=== PATIENT | female | born 1960 | race Caucasian/White ===

== ENCOUNTER 2021-07-23 20:43 | Emergency (ER) | payer OTHER ==
--- OUTSIDE RECORDS SUMMARY | 2021-07-23 20:48 | XMS REPORT | Continuity of Care Document ---
:1960 Author Organization [facility] t Address [address] [place] [address] Care Team Providers Name Role Phone [facility] Primary Care Physician Unavailable Charbel Attending Clinician Unavailable JASON Attending Clinician Unavailable Blaire Chamberlain Attending Clinician Unavailable Silvano Raza Attending Clinician Unavailable ESSENCE Attending Clinician Unavailable Jodee Abdi MD Attending Clinician PERFECTO Attending Clinician Unavailable NETTA Attending Clinician Unavailable Doctor Unassigned, Name Attending Clinician Unavailable Nallely NOLEN Attending Clinician Unavailable Charbel Admitting Clinician Unavailable Physician, Primary or Family Admitting Clinician UnavailBlaire Esparza Admitting Clinician Unavailable Silvano Raza Admitting Clinician Unavailable Nallely NOLEN Admitting Clinician Unavailable Payers Payer Name Policy Type Policy Number Effective Date Expiration Date S ource Problems Condition Condition Condition Status Onset Resolution Last Treating Co mments Source Name Details Category Date Date Treatment Clinician Date Other Other Disease Active Univers psoriasis psoriasis - ity of 00:00: [place] 00 Medical Branch Bipolar Bipolar Disease Active Overview: Univ ers disorder disorder 2-14 Bipolar ity o f 00:00: Disorder IIICD10 Medical Diagnosis Branch Term [employer] Utility Injury, Injury, Disease Active Overview: Univ ers other and other and 2-14 Rash on ity of unspecifie unspecifie 00:[place], knee, d, knee, 00 unknown Medic al leg, leg, specifics Branch ankle, and ankle, and unable to foot foot abstract more specifica lly at this time.REG, Medical Abstracte r [id number]@6: 00pm Anxiety Anxiety Disease Active Overview: Univ ers state state 2-14 ICD10 ity of 00:00: Diagnosis [place] 00 Term Medical [employer] Branch Utility Panic Panic Disease Active Univers disorder disorder 2-14 ity of without without 00:00: [place] agoraphobi agoraphobi 00 Me dical a a Branch Episodic Episodic Disease Active Overview: Un maria guadalupe mood mood 7-12 ICD10 ity of disorder disorder 00:00: Diagnosis [place] 00 Term Medical [employer] Branch Utility Esophageal Esophageal Disease Active U nivers reflux reflux 7-12 ity of 00:00: [place] 00 Medical Branch Borderline Borderline Disease Active U nivers personalit personalit 7-12 it y of [place] disorder [place] Essential Problem Active 2019-11-10 Me moria hypertensi 04:17:01 l on [place] Essential hypertensi on Active Problem 0 eCW: [facility] Alzheimer' Problem Active 2019-11-10 M emoria s disease, 04:17:01 l unspecifie [place] d Alzheimer' s disease, unspecifie d Active Problem 11/10/2019 eCW: [facility] Chronic Problem Active 2019-11-10 Nadir lele obstructiv 04:17:01 l e Chronic [place] pulmonary obstructiv disease, e unspecifie pulmonary d COPD disease, type unspecifie d COPD type Active Problem 11/10/2019 eCW: [facility] Obesity Problem Active 2019-06-19 Nadir lele (BMI 04:14:45 l 30-39.9) Obesity Morena nn (BMI 30-39.9) Active Problem 06/19/2019 eCW: [facility] Dementia Problem Active 2019-11-10 Mem oria in other 04:17:01 l diseases Dementia Herm cecilia classified in other elsewhere diseases without classified behavioral elsewhere disturbanc without e behavioral disturbanc e Active Problem 11/10/2019 eCW: [facility] Class 2 Problem Active 2019-11-10 Nadir lele severe 04:17:01 l obesity Class 2 [place] due to severe excess obesity calories due to with excess serious calories comorbidit with y and body serious mass index comorbidit (BMI) of y and body 39.0 to mass index 39.9 in (BMI) of adult 39.0 to 39.9 in adult Active Problem 11/10/2019 eCW: [facility] BMI Problem Active 2019-11-10 Memor ia 37.0-37.9, 04:17:01 l adult BMI Jonn 37.0-37.9, adult Active Problem 11/10/2019 eCW: [facility] Alzheimer' Problem Active 2019-11-10 M emoria s disease 04:17:01 l with early [place] n onset Alzheimer' s disease with early onset Active Problem 11/10/2019 eCW: [facility] 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 Jonn disorders Extrapyram in idal and diseases movement classified disorders elsewhere in diseases classified elsewhere Active Problem 11/10/2019 eCW: [facility] Radiculopa Problem Active 2019-11-10 M emoria thy, 04:17:01 l lumbar [place] region Radiculopa thy, lumbar region Active Problem 11/10/2019 eCW: [facility] Mild Problem Active 2019-11-10 Memor ia cognitive 04:17:01 l impairment Mild [place] , so cognitive stated impairment , so stated Active Problem 11/10/2019 eCW: [facility] Bipolar Diagnosis Active 2019-07-08 Me moria disorder 04:14:29 l with Bipolar [place] depression disorder with depression Active Diagnosis 07/08/2019 eCW: [facility] Breast Diagnosis Active 2019-07-08 Mem oria cancer 04:14:29 l screening Breast Morena nn by cancer mammogram screening by mammogram Active Diagnosis 07/08/2019 eCW: [facility] Leg edema Diagnosis Active 2019-07-08 Memoria 04:14:29 l Leg Jonn edema Active Diagnosis 07/08/2019 eCW: [facility] Encounter Diagnosis Active 2019-07-08 Memoria for 04:14:29 l screening Jonn Encounter for screening Active Diagnosis 07/08/2019 eCW: [facility] Physical Diagnosis Active 2019-07-08 M emoria exam 04:14:29 l Physical [place] n exam Active Diagnosis 07/08/2019 eCW: [facility] Tobacco Problem Active 2019-11-10 Nadir lele use 04:17:01 l disorder Tobacco [place] nn use disorder Active Problem 11/10/2019 eCW: [facility] Rheumatoid Problem Active 2019-11-10 M emoria arthritis, 04:17:01 l involving Jonn unspecifie Rheumatoid d site, arthritis, unspecifie involving d unspecifie rheumatoid d site, factor unspecifie presence d rheumatoid factor presence Active Problem 11/10/2019 eCW: [facility] Type 2 Problem Active 2019-11-10 Memor ia diabetes 04:17:01 l mellitus Type 2 [place] without diabetes complicati mellitus on, without without complicati long-term on, current without use of long-term insulin current use of insulin Active Problem 11/10/2019 eCW: [facility] BMI Diagnosis Active 2019-07-08 Mem oria 39.0-39.9, 04:14:29 l adult BMI [place] 39.0-39.9, adult Active Diagnosis 07/08/2019 eCW: [facility] Acquired Problem Active 2019-11-10 Mem oria hypothyroi 04:17:01 l dism Acquired [place] hypothyroi dism Active Problem 11/10/2019 eCW: [facility] Allergies, Adverse Reactions, Alerts Allergy Allergy Status Severity Reaction(s) Onset Inactive Treating Comm ents Source Name Type Date Date Clinician adhesive DA Active U PEELS [facility] SKIN 1-17 Clear OFF/RASH-HIV 00:00: Samuel ES [facility] METALS DA Active U ITCHING/PUS [facility] BLISTERS 1-17 Clear 00:00: [facility] adhesive DA Active U 2020-03 [facility] 0-28 Clear 00:00: [facility] Penicill DA Active U 2020-03 [facility] ins 0-28 Clear 00:00: [facility] morphine DA Active [place] 2020-03 [facility] 0-28 Clear 00:00: [facility] cephalex DA Active [place] 2020-03 [facility] in 0-28 Clear 00:00: [facility] Penicill DA Active U RASH 2020-03 [facility] ins 0-28 Clear 00:00: [facility] morphine DA Active [place] ITCHING 2020-03 [facility] 0-28 Clear 00:00: [facility] diphenhy DA Active [place] 2020-03 [facility] dramine 0-28 Clear 00:00: [facility] cephalex DA Active [place] RASH 2020-03 [facility] in 0-28 Clear 00:00: [facility] adhesive DA Active U PEELS THE 2020-03 [facility] SKIN OFF 0-28 Clear 00:00: [facility] diphenhy DA Active [place] ITCHING 2020-03 [facility] dramine 0-28 Clear 00:00: [facility] morphine morphine Active Info Not 2020-0 Nadir lele Available 6-26 l 00:00: penicill penicill Active Info Not 2020-0 Nadir lele in in Available 6-26 l 00:00: Keflex Keflex Active Info Not 2020-0 Memoria Available 6-26 l 00:00: Keflex Propensi Active 2020-0 Other [facility] ty to 3-25 reaction( College adverse 00:00: s): Info of reaction 00 Not Medicin s to Available e drug Cephalex Propensi Active Shortness of 2005-0 Univers in ty to Breath 7-12 ity of adverse 00:00: [place] reaction 00 Medical s Branch CEPHALEX DRUG Active SOB 2005-0 Univers IN INGREDI 7-12 ity of 00:00: 00 Medical Branch Morphine Propensi Active Itching 2005-0 Unive rs Sulfate ty to 7-12 ity of adverse 00:00: [place] reaction 00 Medical s Branch MORPHINE DRUG Active ITCHING 2005-0 Univers SULFATE INGREDI 7-12 ity of 00:00: [place] 00 Medical Branch PENICILL Drug Active ITCHING 2005-0 Univers INS Class 7-12 ity of 00:00: [place] 00 Medical Branch Penicill Propensi Active Itching 2005-0 Unive rs ins ty to 7-12 ity of adverse 00:00: [place] reaction 00 Medical s Branch Cephalex Propensi Active Shortness Of 2005-0 Raúl in ty to Breath 7-12 College adverse 00:00: of reaction 00 Medicin s to e drug Morphine Propensi Active Itching [facility] Sulfate ty to 712 College adverse 00:00: of reaction 00 Medicin s to e drug Penicill Propensi Active Itching Other [facility] ins ty to 10-03 reaction( [place] adverse 00:00: s): Info of reaction 00 Not Medicin s to Available e drug Social History Social Habit Start Date Stop Date Quantity Comments Source Sex Assigned [facility] Tobacco use and 2020-06-14 2020-06-14 Current user [facility] College of exposure 00:00:00 00:00:00 Medicine Alcohol intake 2020-06-14 2020-06-14 Ex-drinker [facility] Col lege of 00:00:00 00:00:00 (finding) Medicine Smoking Status Start Date Stop Date Source Current some day smoker 2020-06-14 00:00:00 [facility] Unknown if ever smoked [facility] Medications Ordered Filled Start Stop Current Ordering Indication Dosage Frequency Signature Comments Components Source Medication Medication Date Date Medication? Clinician (SIG) Name Name Tofacitinib Yes Take by [facility] Citrate 5 3-23 mouth. College MG TABS 14:35: of 45 Medicin e amitriptyli Yes 100mg Take 100 B [facility] ne (ELAVIL) 3-23 mg by [place] 100 MG 14:35: mouth of tablet 45 nightly. Medicin e olanzapine Yes 15mg Take 15 mg [facility] (ZYPREXA) 3-23 by mouth Colleg e 15 MG 14:35: nightly. of tablet 45 Medicin e donepezil Yes 10mg Take 10 mg [facility] (ARICEPT) 3-23 by mouth Colleg e 10 MG 14:35: nightly. of tablet 45 Medicin e diazepam Yes 5mg Take 5 mg [facility] (VALIUM) 5 3-23 by mouth Colle ge MG tablet 14:19: every 6 of 23 hours as Medicin needed for e Anxiety. furosemide Yes 20mg Take 20 mg [facility] (LASIX) 20 3-23 by mouth Colle ge MG tablet 14:19: daily. of 23 Medicin e levothyroxi Yes 50ug Take 50 Clarke shania ne 3-23 mcg by [place] (SYNTHROID) 14:19: mouth of 50 MCG 23 daily. Medicin tablet e metformin Yes 1000mg Take 1,000 [facility] (GLUCOPHAGE 3-23 mg by [place] ) 1000 MG 14:19: mouth 2 of tablet 23 times Medicin daily e (with meals). atorvastati Yes 40mg Take 40 mg [facility] n (LIPITOR) 3-23 by mouth Julian ege 40 MG 14:19: daily. of tablet 22 Medicin e Biotin 5000 Yes Take by Dread foreman MCG TABS 3-23 mouth. [place] 14:19: of 22 Medicin e Cranberry-C Yes Take by Dread foreman holecalcife 3-23 mouth. Colleg e rol 14:19: of 4200-500 22 Medicin MG-UNIT e CAPS doxycycline Yes 100mg Take 1 Clarke shania (VIBRAMYCIN 3-23 capsule by Ashley rojo ) 100 MG 00:00: mouth two of capsule 00 times Medicin daily. e trazodone Yes TAKE 1 Raúl (DESYREL) 3-03 TABLET BY [facility] ge 150 MG 00:00: MOUTH of tablet 00 EVERY DAY Medicin AT BEDTIME e pantoprazol 2019-0 Yes Cecilia 1 tab(s) Me moria e 818 [place] l 04:17: metformin 2020-0 Yes Cecilia 1 tab(s) Nadir lele 8-18 [place] l 04:17: paroxetine 2020-0 Yes Cecilia 1 tab(s) Mem oria 7- [place] l 04:13: atorvastati 2020-0 Yes Cecilia 1 tab(s) Me moria n 7-09 [place] l 04:13: 32 Aspir 81 2020-0 Yes Cecilia 1 tab(s) Memor ia 7- [place] l 04:13: amitriptyli 2020-0 Yes Cecilia 1 tab(s) Me moria ne 7- [place] l 04:13: Aricept 2020-0 Yes Cecilia 1 tab(s) Memori a 7- [place] l 04:13: 32 levothyroxi 2020-0 Yes Cecilia 1 tab(s) Me moria ne 7-09 [place] l 04:13: 32 metoprolol 2020-0 Yes Cecilia 1 tab(s) Mem oria 7-09 [place] l 04:13: 32 isosorbide 2020-0 Yes Cecilia 1 tab(s) Mem oria dinitrate 7-09 [place] l 04:13: 32 biotin 2020-0 Yes Cecilia 1 tab(s) Memoria 7-09 [place] l 04:13: 32 trazodone 2020-0 Yes Cecilia 1 tab(s) Nadir lele 7-09 [place] l 04:13: 32 clonazepam 2020-0 Yes Cecilia 1 tab(s) Mem oria 7-09 [place] l 04:13: [place] 32 furosemide 2020-0 Yes Cecilia 1 tab(s) Mem oria 7-09 [place] l 04:13: 32 olanzapine 2020-0 Yes Cecilia 1 tab(s) Mem oria 7-09 [place] l 04:13: 32 nitroglycer 2020-0 Yes Cecilia 1 cap(s) Me moria in 7- [place] l 04:13: 32 Tylenol 2020-0 Yes Cecilia 1 tab(s) Memori a with 7-09 [place] l Codeine #4 04:13: 32 Xeljanz 2020-0 Yes Cecilia 1 tab(s) Memori a 7-09 [place] l 04:13: 32 Combivent 2020-0 Yes Cecilia not Memoria 7-09 [place] defined l 04:13: 32 potassium 2020-0 Yes Cecilia 1 cap(s) Nadir llee chloride 7-09 [place] l 04:13: 32 Loperamide 2020-0 Yes Cecilia 1 cap(s) Mem oria Hydrochlori 7-09 [place] l de 04:13: 32 potassium 2020-0 Yes Cecilia 1 cap(s) Nadir lele chloride 4-15 [place] l 04:14: 29 furosemide 2020-0 Yes Cecilia 1 tab(s) Mem oria 4-15 [place] l 04:14: [place] 29 amitriptyli 2020-0 Yes Cecilia 1 tab(s) Me moria ne 4-15 [place] l 04:14: Jonn 29 isosorbide Yes Cecilia 1 tab(s) Mem oria dinitrate 4-15 [place] l 04:14: 29 PAXIL ORAL Yes 60 mg, q Uni vers 5-29 am ity of 23:11: [address] TRAZODONE Yes q hs Univers 300 MG ORAL 5-29 ity of TAB 23:11: [address] PAXIL 20 MG Yes Take As Uni vers ORAL TAB 2-15 DIR ORAL ity of 00:02: [address] PEPCID AC Yes Take As Unive rs ORAL 2-15 DIR ORAL ity of 00:02: [address] COMPAZINE Yes Take As Unive rs 10 MG ORAL 2-15 DIR ORAL ity o f TAB 00:02: [address] NORTRIPTYLI Yes Take As Uni vers NE 25 MG 2-15 DIR ORAL ity of ORAL CAP 00:02: [address] KLONOPIN 1 Yes Take As Univ ers MG ORAL TAB 2-15 DIR ORAL ity of 00:02: [address] ESCITALOPRA Yes 2 Tab Oral Univers M 10 MG 7-14 DAILY ity of ORAL TAB 00:00: [address] TRAZODONE 0 Yes 1 Tab Oral Un maria guadalupe 100 MG ORAL 7-14 QHS ity of TAB 00:00: [place] [address] [address] [place] QUETIAPINE 0 Yes 2 Tab Oral U nivers 100 MG ORAL 7-14 QHS ity of TAB 00:00: [place] [address] [address] [place] ZOLPIDEM 10 0 Yes 1 Tab Oral Univers MG ORAL TAB 7-14 QHS ity of 00:00: [address] Vital Signs Vital Name Observation Time Observation Value Comments Source Systolic blood 2020-06-14 13:55:00 106 mm[Hg] [facility] pressure Medicine Diastolic blood 2020-06-14 13:55:00 77 mm[Hg] [facility] of pressure Medicine Heart rate 2020-06-14 13:55:00 83 /min [facility] Body height 2020-06-14 13:55:00 170.2 cm [facility] Body weight 2020-06-14 13:55:00 97.523 kg [facility] BMI 2020-06-14 13:55:00 33.67 kg/m2 [facility] Height 2019-09-18 18:30:00 [facility] [place] Weight 2019-09-18 18:30:00 [facility] [place] Temperature Oral (F) 2019-09-18 18:30:00 98.4 F [facility] [place] Diastolic (mm Hg) 2019-09-18 18:30:00 Mem orial Jonn Systolic (mm Hg) 2019-09-18 18:30:00 Nadir rial Jonn Height 2019-06-17 15:30:00 [facility] [place] Weight 2019-06-17 15:30:00 [facility] [place] Temperature Oral (F) 2019-06-17 15:30:00 96.2 F [facility] [place] Diastolic (mm Hg) 2019-06-17 15:30:00 Mem orial [place] Systolic (mm Hg) 2019-06-17 15:30:00 Nadir rial [place] Procedures Procedure Date / Time Performing Clinician Source Performed ADRIAN SCOPE 2020-06-14 15:33:00 Sharona Abdi [facility] AUTHORIZATION FOR 2019-07-31 05:01:00 Doctor Unassigned, No [facility] RELEASE OF PHI Name Medical Branch Plan of Care Planned Activity Planned Date Details Comments Source Future Scheduled MD NASAL ENDOSCOPY,DX Ordered: [employer] Test [code = 18984] 06/20/2020 of Medicine Future Scheduled Screening for malignant [facility] Test neoplasm of colon of Medicin e (procedure) [code = 962893676] Future Scheduled Screening for malignant [facility] Test neoplasm of breast of Medici ne (procedure) [code = 250436129] Future Scheduled TETANUS SHOT (ADULT) [facility] [employer] Test [code = TETANUS SHOT of Medi cine (ADULT)] Future Scheduled COVID-19 Vaccine (1) [facility] [employer] Test [code = COVID-19 Vaccine of Medicine (1)] Future Scheduled BMI FOLLOW UP PLAN [code [facility] Test = BMI FOLLOW UP PLAN] of Med icine Future Scheduled Hepatitis C screening [employer] Test (procedure) [code = of Medic ine 202634317] Future Scheduled Human immunodeficiency B [facility] Test virus screening of Medicine (procedure) [code = 695125210] Future Scheduled Screening for malignant [facility] Test neoplasm of cervix of Medici ne (procedure) [code = 308564237] Future Scheduled ZOSTER VACCINE (1 of 2) [facility] Test [code = ZOSTER VACCINE of Me dicine (1 of 2)] Future Scheduled FLU VACCINE > 6 MONTHS B [facility] Test [code = FLU VACCINE > 6 of M edicine MONTHS] Encounters Start End Encounter Admission Attending Care Care Encounter Source Date/Time Date/Time Type Type Clinicians Facility Department ID 2021-04-10 Inpatient TRUE Angela DAYS [id number] [facility] 15:00:00 Heri [id number] [facility] 2020-11-04 Outpatient [id number] Memoria 15:11:39 [id number] [place] [id number] 2021-04-27 2021-04-27 Outpatient JASON [facility] [id number] 00:00:00 00:00:00 RUEYWEN 220 Method i 2021-04-27 2021-04-27 Outpatient GOMEZ [facility] [id number] 00:00:00 00:00:00 RUEYWEN 391 Method i 2021-04-11 2021-04-11 Outpatient TRUE Angela DAYS [id number] [facility] 05:44:00 05:44:00 Heri [id number] [facility] 2021-04-11 2021-04-11 [id number] 05:44:00 05:44:00 Heri 85 [facility] 2021-03-05 2021-03-07 Inpatient EM Errolmarco antonioTRUE MEDI.01 [id number] [facility] 22:14:00 18:43:00 Marielle [id number] [facility] 2021-03-05 2021-03-07 Inpatient EM TRUE Chamberlain MEDI.01 [id number] [facility] 22:14:00 18:43:00 Marielle 47 [facility] 2021-02-03 2021-02-03 Outpatient JASON [facility] [id number] 00:00:00 00:00:00 RUEYWEN 644 Method i 2021-01-19 2021-01-22 Inpatient EM Ry [facility] MEDI.01 [id number] [facility] 11:03:00 16:34:00 Magy 08 [facility] 2021-01-19 2021-01-22 Inpatient EM TRUE Raza MEDI.01 [id number] [facility] 11:03:00 16:34:00 Magy [id number] [facility] 2020-11-04 2020-11-04 Outpatient JASON [facility] [id number] 00:00:00 00:00:00 RUIESHA 297 Method i 2020-09-22 2020-09-22 Outpatient [facility] [id number] [place] 00:00:00 00:00:00 797 Method i 2020-09-17 2020-09-17 Emergency ESSENCE, [facility] [id number] [place] 00:00:00 00:00:00 BRIDGETTE 899 Method i 2020-08-26 2020-08-26 Outpatient JASON [facility] [id number] [address] 00:00:00 00:00:00 RUIESHA 155 Method i 2020-06-14 2020-06-14 Office FABRICE Abdi [id number] [facility] 08:44:00 11:45:02 Visit Sharona AMBULATOR [id number] [place] Jodee Y [id number] [facility] mehran 800 e 2020-06-10 2020-06-10 Emergency RIVENES, [facility] [id number] [place] 00:00:00 00:00:00 ALESHIA 604 Method i 2020-01-01 2020-01-01 Outpatient NETTA, [facility] 7500 [facility] 08:26:00 23:59:00 STEFFANIE 2019-07-31 2019-07-31 Orders Doctor BRIDGETTE [id number] Univers 00:00:00 00:00:00 Only Unassigned, ANA 350.1.13.10 ity of [place] [facility] [id number] Bon as [id number] [address] 2019-07-31 2019-07-31 Orders Doctor BRIDGETTE [id number] 00:00:00 00:00:00 Only Unassigned, ANA 350.1.13.10 [place] [facility] [id number] [facility] 2019-03-18 2019-03-19 Emergency X NOLEN, [facility] ERT [id number] Univers 23:16:26 01:52:00 JABIER castillo [facility] Results Test Description Test Time Test Comments Results Result Comments Source GLUCOSE BEDSIDE 2021-04-11 10:36:00 Test Item Value Reference Range Interpretation Comme nts GLUCOSE BEDSIDE (test code = 150 MG/DL 70-110 H Performed by certified 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 [facility]) [facility] GLUCOSE [id number] 07:17:00 Test Item Value Reference Range Interpretation Comments GLUCOSE BEDSIDE (test 101 MG/DL 70-110 N Perfor med by certified code = GLUBED) 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 - XR FLUOROSCOPY 0-60 [id number] 00:00:00 [facility] : 1960 Sex: F FAX: Heri Aguayo MD [phone] [place]: [address]: REG Name: MIHAI ALMAGUER : 1960 Age/S: 60/F [address] [place] [address] Unit #: [id number] Loc: [place] [address] Phys: Heri Barger MD Acct: [id number] Dis Date: Status: REG [facility] PHONE #: [phone] Exam Date: 04/11/2021 1000 FAX #: [phone] Reason: HERNIATED CERVICAL DISC EXAMS: CPT CODE: [id number] XR FLUOROSCOPY 0-60MIN [id number] PROCEDURE INFORMATION: Exam: [place] Fluoroscopy, Up to 1 Hour Physician Time; Radiologist Not Present For Fluoroscopy Exam date and time: 04/11/2021 8:31 AM Age: 60 years old Clinical indication: Pain; Pain: Herniated cervical disc 5/6; () TECHNIQUE: Imaging protocol: Fluoroscopy , up to 1 hour physician or other qualified health career agent time. This radiologist did not supervise this procedure. Exam supervised by facility personnel. Report for radiation dosage reporting and documentation only. COMPARISON: No relevant prior studies available. RADIATION DOSE METRICS: Fluoroscopy time (seconds): seconds= 11 SEC Number of fluoro spot images: images= 4 Reference air kerma (VIMAL): 1.76 mGy FINDINGS: Procedural imaging: Anterior fusion and interbody graft C5-C6. Notes: Fluoroscopy supervised by facility personnel. See also separate procedure report. IMPRESSION: Fluoroscopy dosage documentation. See also separate procedure notes. Electronically Signed by Richard Gibson 04/11/2021 at 1034 Reported and signed by: Giovani Le M.D. CC: Heri Barger MD Technologist: Saundra Ricci, RT(R) Trnscrd Date/Time/By: 04/11/2021 (1034) : By: ArnulfoTTV Orig Print D/T: S: 04/11/2021(4649) PAGE 1 Signed ReportCOVID 19 Asymptomatic IH AG 2021-04-10 18:37:00 Test Item Value Reference Range Interpretation Comments COVID 19 Asymptomatic Negative Negative A nega tive result is IH AG (test code = presumpti ve and should COVNONPUIAG) be confirmedwit h an FDA authorized mole cular assay, if collin sorenson forpatient maryjane hargrove.A positive result does not rule out co-inf ections withother patho gens.This test detects lisa th viable (live) and non-viable,SARS -CoV, and SARS-CoV-2. Jaquelin t performance dep ends on theamount of vi donna (antigen) in th e sample.This jaquelin t has not been FDA cleare d or approved; the t est hasbeen authori zed by FDA under an Em ergency Use Authorizati on(EUA) for use by labo ratories certified under the CLIA thatmeet the requirements to perform moderate, high or waivedcomplexit y tests. BASIC METABOLIC [id number] 17:23:00 Test Item Value Reference Range Interpretation Comments SODIUM (test code = NA) 136 mEq/L 134-147 N POTASSIUM (test code = 3.8 mEq/L 3.4-5.0 N K) CHLORIDE (test code = 106 mEq/L 100-108 N CL) CARBON DIOXIDE (test 24 mEq/l 21-33 N code = CO2) ANION GAP (test code = 10 0-20 N GAP) GLUCOSE (test code = 95 mg/dL 70-110 N GLU) BLOOD UREA NITROGEN < 5 mg/dL 7-18 L (test code = BUN) GLOMERULAR FILTRATION 85.6 90-95 L Units of measure = RATE (test code = GFR) ml/mi n/1.73 m2 CREATININE (test code = 0.7 mg/dL 0.6-1.3 N CREAT) CALCIUM (test code = 10.1 mg/dL 8.0-10.5 N CA) PROTHROMBIN [id number] 17:22:00 Test Item Value Reference Range Interpretation Comments PROTHROMBIN TIME 11.3 SECONDS 9.3-12.9 N PATIENT (test code = PTP) INTERNATIONAL NORMAL 1.0 0.8-1.2 N TARGET RATIO (test code = INR BY IN DICATION INR) Indication INR1. Prophyl axis of venous thrombos is 2.0 - 3. 0 (orthopedic magdy raquel), Prophylaxis of venous thrombos is (other than hig h-risk surgery), Angela tment of Deep Vein Thrombosis/Pulm onary Embolism, Preve ntion of systemic emb olism - Tissue heart va lves, Acute Myocardia l Infarction (to prevent systemic embo lism), Valvular heart disease, Atri al Fibrillation, Bileaflet mecha nical valve in aortic position.2. Mec hanical prosthetic valv es (high risk), 2.5 - 3.5 Presence of Lupus Anticoagu lant or Antiphospholi pid Antibodies, Pre vention of systemic e mbolism - Acute Myocard ial Infarction (t o prevent recurre nt infarct). THROMBOPLASTIN TIME [id number] 17:22:00 Test Item Value Reference Range Interpretation Comments THROMBOPLASTIN TIME 30.9 Seconds 25.0-39.5 N Ther apeutic PARTIAL (test code = Range: 50.4 - 88.3 PTT) Seconds Effective 07/08/2018 CBC W/AUTO [id number] 17:05:00 Test Item Value Reference Range Interpretation Comments WHITE BLOOD CELL (test code = 10.4 x10 3/uL 4.5-11.0 N WBC) RED BLOOD CELL (test code = 5.30 x10 6/uL 3.54-5.02 H RBC) HEMOGLOBIN (test code = HGB) 15.9 g/dL 11.0-15.0 H HEMATOCRIT (test code = HCT) 52.9 % 33.0-45.0 H MEAN CELL VOLUME (test code = 99.8 fL 81.0-99.0 H MCV) MEAN CELL HGB (test code = MCH) 30.0 pg 27.0-33.0 N MEAN CELL HGB CONCETRATION 30.1 g/dL 33.0-37.0 L (test code = MCHC) RED CELL DISTRIBUTION WIDTH CV 14.7 % 11.5-14.5 H (test code = RDW) RED CELL DISTRIBUTION WIDTH SD 54.4 fL 37.0-54.0 H (test code = RDW-SD) PLATELET COUNT (test code = 326 x10 3/uL 150-400 N PLT) MEAN PLATELET VOLUME (test code 9.5 fL 7.0-9.0 H = MPV) NEUTROPHIL % (test code = NT%) 58.9 % 56.0-77.0 N IMMATURE GRANULOCYTE % (test 0.3 % 0.0-2.0 N code = IG%) LYMPHOCYTE % (test code = LY%) 31.7 % 14.0-32.0 N MONOCYTE % (test code = MO%) 8.4 % 4.8-9.0 N EOSINOPHIL % (test code = EO%) 0.3 % 0.3-3.7 N BASOPHIL % (test code = BA%) 0.4 % 0.0-2.0 N NUCLEATED RBC % (test code = 0.0 % 0-0 N NRBC%) NEUTROPHIL # (test code = NT#) 6.11 x10 3/uL 2.0-7.6 N IMMATURE GRANULOCYTE # (test 0.03 x10 3/uL 0.00-0.03 N code = IG#) LYMPHOCYTE # (test code = LY#) 3.29 x10 3/uL 1.0-3.8 N MONOCYTE # (test code = MO#) 0.87 x10 3/uL 0.1-0.8 H EOSINOPHIL # (test code = EO#) 0.03 x10 3/uL 0.0-0.2 N BASOPHIL # (test code = BA#) 0.04 x10 3/uL 0.0-0.2 N NUCLEATED RBC # (test code = 0.00 x10 3/uL 0.0-0.1 N NRBC#) MANUAL DIFF REQUIRED (test code NO = MDIFF) - XR CHEST 2 [id number] 00:00:00 [facility] : 1960 Sex: F FAX: Heri Aguayo MD [phone] [place]: St: PRE FAX: Leighann Atkins Name: DERRICK ALMAGUER [facility] : 1960 Age/S: 60/F [address] [place] [address] Unit #: [id number] Loc: [place] [address] Phys: Leighann Baxter MELT 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 Views: 2 views. PA and Lateral COMPARISON: 03/05/2021 chest x-ray FINDINGS: Lungs: Bilateral pulmonary opacities seen on the prior study are improved with mild residual bibasilar predominately interstitial opacities present. Pleural spaces: No pleural effusion. No pneumothorax. Heart/Mediastinum: Cardiomediastinal silhouette is normal in size. Bones/joints: No acute bony finding. IMPRESSION: Interval improvement in pulmonary opacities seen on the prior exam with mild residual bibasilar infiltrates or scarring. at 1721 Reported and signed by: Devyn Martínez M.D. 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 BASIC METABOLIC [id number] 07:59:00 Test Item Value Reference Range Interpretation Comments SODIUM (test code = NA) 140 mEq/L 134-147 N POTASSIUM (test code = 3.6 mEq/L 3.4-5.0 N K) CHLORIDE (test code = 106 mEq/L 100-108 N CL) CARBON DIOXIDE (test 27 mEq/l 21-33 N code = CO2) ANION GAP (test code = 10 0-20 N GAP) GLUCOSE (test code = 99 mg/dL 70-110 N GLU) BLOOD UREA NITROGEN 7 mg/dL 7-18 N (test code = BUN) GLOMERULAR FILTRATION 126.3 90-95 H Units of measure = RATE (test code = GFR) ml/mi n/1.73 m2 CREATININE (test code = 0.5 mg/dL 0.6-1.3 L CREAT) CALCIUM (test code = 9.1 mg/dL 8.0-10.5 N CA) [id number] 07:59:00 Test Item Value Reference Range Interpretation Comments PHOSPHOROUS (test code = PHOS) 4.6 MG/DL 2.5-4.9 N [id number] 07:59:00 Test Item Value Reference Range Interpretation Comments MAGNESIUM (test code = MAG) 1.57 mg/dL 1.80-2.40 L CBC W/AUTO [id number] 07:48:00 Test Item Value Reference Range Interpretation Comments WHITE BLOOD CELL (test code = 8.0 x10 3/uL 4.5-11.0 N WBC) RED BLOOD CELL (test code = 4.37 x10 6/uL 3.54-5.02 N RBC) HEMOGLOBIN (test code = HGB) 13.3 g/dL 11.0-15.0 N HEMATOCRIT (test code = HCT) 42.0 % 33.0-45.0 N MEAN CELL VOLUME (test code = 96.1 fL 81.0-99.0 N MCV) MEAN CELL HGB (test code = MCH) 30.4 pg 27.0-33.0 N MEAN CELL HGB CONCETRATION 31.7 g/dL 33.0-37.0 L (test code = MCHC) RED CELL DISTRIBUTION WIDTH CV 13.6 % 11.5-14.5 N (test code = RDW) RED CELL DISTRIBUTION WIDTH SD 48.2 fL 37.0-54.0 N (test code = RDW-SD) PLATELET COUNT (test code = 283 x10 3/uL 150-400 N PLT) MEAN PLATELET VOLUME (test code 9.7 fL 7.0-9.0 H = MPV) NEUTROPHIL % (test code = NT%) 61.2 % 56.0-77.0 N IMMATURE GRANULOCYTE % (test 0.3 % 0.0-2.0 N code = IG%) LYMPHOCYTE % (test code = LY%) 24.3 % 14.0-32.0 N MONOCYTE % (test code = MO%) 13.4 % 4.8-9.0 H EOSINOPHIL % (test code = EO%) 0.5 % 0.3-3.7 N BASOPHIL % (test code = BA%) 0.3 % 0.0-2.0 N NUCLEATED RBC % (test code = 0.0 % 0-0 N NRBC%) NEUTROPHIL # (test code = NT#) 4.90 x10 3/uL 2.0-7.6 N IMMATURE GRANULOCYTE # (test 0.02 x10 3/uL 0.00-0.03 N code = IG#) LYMPHOCYTE # (test code = LY#) 1.94 x10 3/uL 1.0-3.8 N MONOCYTE # (test code = MO#) 1.07 x10 3/uL 0.1-0.8 H EOSINOPHIL # (test code = EO#) 0.04 x10 3/uL 0.0-0.2 N BASOPHIL # (test code = BA#) 0.02 x10 3/uL 0.0-0.2 N NUCLEATED RBC # (test code = 0.00 x10 3/uL 0.0-0.1 N NRBC#) MANUAL DIFF REQUIRED (test code NO = MDIFF) GLUCOSE [id number] 07:36:00 Test Item Value Reference Range Interpretation Comments GLUCOSE BEDSIDE (test 100 MG/DL 70-110 N [facility] by certified code = GLUBED) 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 - CT CHEST W/O [id number] 00:00:00 [facility] : 1960 Sex: F Name: DERRICK ALMAGUER [facility] : 1960 Age/S: 60 / F [address] [place], [place] [address] Unit #: [id number] Loc: [place] [address] Phys: Robby Brennan MELT DOWN FURNACE OPERATOR Acct: [id number] Dis Date: Status: ADM IN PHONE #: [phone] Exam Date: 03/07/2021 1246 FAX #: [phone] Reason: SOB, Hypoxia EXAMS: CPT CODE: [id number] CT CHEST W/O CONTRAST 19343 PROCEDURE INFORMATION: Exam: CT Chest Without Contrast; Diagnostic Exam date and time: 12:46 PM Age: 60 years old Clinical indication: Shortness of breath; Additional info: SOB, hypoxia TECHNIQUE: Imaging protocol: Diagnostic computed tomography of the chest without contrast. Radiation optimization: All CT scans at this facility use at least one of these dose optimization techniques: automated exposure control; mA and/or kV adjustment per patient size (includes targeted exams where dose is matched to clinical indication); or iterative reconstruction. COMPARISON: CR XR CHEST 1V 03/05/2021 9:09 PM FINDINGS: Limitations: Assessment of the viscera and vasculature may be limited by the lack of intravenous contrast. Lungs: Moderate emphysematous changes are present. There is bronchial wall thickening bilateral with patchy opacification of subsegmental bronchi in the lower lobes. There are indistinct reticular and ground-glass opacities more pronounced in dependent lung zones with additional patchy disease in non dependent lung zones. Interstitial septal thickening. Bandlike opacities in the basilar lower lobes compatible with subsegmental atelectasis. There is no consolidation. There are scattered nodular opacities as follows: Right upper lobe, series 3, image 110, 6 mm. Right lower lobe, series 3, image 201, 7 mm. Left lower lobe, series 3, image 203, 6 mm. Pleural spaces: Thereis no pneumothorax or pleural effusion. Heart: There is moderate atherosclerotic calcification of the coronary arteries. Pulmonary arteries: The central pulmonary arteries are dilated. Main pulmonary artery 3.7 cm. Aorta: The aorta demonstrates mild atherosclerotic calcification. Mild aortic ectasia without focal aneurysm. Ascending aorta at the level of RPA, 3.8 cm. Descending aorta 2.7 cm at the same level. Lymph nodes: There are scattered borderline enlarged mediastinal nodes. Station 4R node 11 mm short axis. Station 4 L node 12 mm short axis. The line the esophagus is unremarkable. Adrenal glands: Nodular thickening right adrenal up to 12 mm, indeterminate by attenuation values. Bones/joints: The thoracic spine demonstrates mild degenerative changes at multiple levels. PAGE 1 Signed Report (CONTINUED) Name: DERRICK [facility] : 1960 Age/S: 60 / F [address] [place] [address] BlvdUnit #: [id number] Loc: [place] [address] Phys: Robby Brennan MELT DOWN FURNACE OPERATOR Acct: [id number] Dis Date: Status:ADM IN PHONE #: [phone] Exam Date: 03/07/2021 1246 FAX #: [phone] Reason: SOB, Hypoxia EXAMS: CPT CODE: [id number] CT CHEST W/O CONTRAST 04700 <Continued> Soft tissues: Unremarkable. IMPRESSION: 1. Reticular and ground-glass interstitial opacities superimposed on a background of emphysema, with dependent lung zone predominance supportive of edema. Other patchy nondependent opacities are supportive of component of inflammation with infectious and noninfectious etiologies differential. 2. Incidental subcentimeter pulmonary nodules. For patients at low risk (minimal or absent history of smoking and of other known risk factors), recommend CT Chest at 3-6 months, then consider CT Chest at 18-24 months. For patients at high risk (history of smoking or of other known risk factors), recommend CT Chest at 3-6 months, then CT Chest at 18-24 months. (Reference: Roxanna) 3. Dilated c entral pulmonary arteries raising the possibility of pulmonary arterial hypertension. 4. Atherosclerosis. Coronary arterial calcifications. 5. Borderline enlarged mediastinalnodes. 6. Incidental right adrenal nodular thickening to 12 mm, indeterminate by attenuation values.Consider 12 month follow-up adrenal CT. (Reference: Krish) REFERENCES: 1. Roxanna Avila, et al. Guidelines for Management of Incidental Pulmonary Nodules Detected on CT Images: From the Fleischner Society 2017. Radiology. 2017;284(1):228-243. 2. Krish SANCHEZ, et al. Management of Incidental Adrenal Masses: A White Paper of the ACR Incidental Findings Committee. J Am Julian Radiol. 2017;14(8):3829-2115. Electronically Signed by Richard Carr on 1at 1349 Reported and signed by: Torsten Carr M.D. CC: Robby Brennan NP Technologist:Leon Gonsalves, RT(R)(CT) CTDI: DLP: Trnscb Date/Time: 03/07/2021 (1348) Abimael Orig Print D/T: S: 03/07/2021 (1348) PAGE 2 Signed ReportTROPONIN-I [id number] 02:14:00 Test Item Value Reference Range Interpretation Comments TROPONIN-I RAPID 0.06 ng/mL 0.00-0.08 N Performed b y certified (test code = 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 [facility]) [facility] Negative: <= 0.0 8 Positive: >= 0.09An elevated troponin value alone is not sufficient todi agnose a myocardial infa rction. Rather, the pat ient sclinical prese ntation (history, physi josephine exam) and ECGshould b e used in conjunction wit h troponin in thediagnosti c evaluation of s uspected myocardial infa rction. Aserial samplin g protocol is recommended to facilitate the identification of temporal changes in trop onin levels characteristic of [place]. LIPOPROTEIN [id number] 01:31:00 Test Item Value Reference Range Interpretation Comments LIPOPROTEIN LDL 78.5 mg/dL 0-100 N <100 OPT [id number] (test code = LDL) NEAR OPTIM AL/ABOVE [id number] 89 HIGH>RT=239 VE RY HIGH*Guidelines provided by the National Cholesterol EducationProgra m Adult Treatment Panel III TROP-I HIGH [id number] 01:17:00 Test Item Value Reference Range Interpretation Comments TROP-I HIGH 136 ng/L 0-34 HH Critical result called to SENSITIVITY (test IMANI LEEARETHAby code = TROPIHS) G.LAB.KM1 at 0117 03/06/21Nurse r ead back result and tech confirmed it's correct? Y ESCAUTION: Units of the cu rrent test methodology (ng /L) differfrom the prior test methodology (ng /mL) by a factor of 1000. 99t h Percentile Uppe r Reference Limit (URL): Fe males: 34 ng/LMales: 54 ng/L In order to distin guish acute elevations of h igh sensitivitytrop onin from other clinical conditions, the FourthUnive rsal Definition of M yocardial Infarction stressesclinica l assessment and the demonstration o f a rise and/orfall in s erial troponin result s above the URL. These resu lts were obtained using [facility] IM TnI Hreagent. Results from di fferent methodologies s hould not becompared to o ne another as quantitative results and URLs mayvar y by method. TROPONIN-I [id number] 00:01:00 Test Item Value Reference Range Interpretation Comments TROPONIN-I RAPID 0.08 ng/mL 0.00-0.08 N Performed b y certified (test code = 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 [facility]) [facility] Negative: <= 0.0 8 Positive: >= 0.09An elevated troponin value alone is not sufficient todi agnose a myocardial infa rction. Rather, the pat ient sclinical prese ntation (history, physi josephine exam) and ECGshould b e used in conjunction wit h troponin in thediagnosti c evaluation of s uspected myocardial infa rction. Aserial samplin g protocol is recommended to facilitate the identification of temporal changes in trop onin levels characteristic of [place]. POC VENOUS BLOOD [id number] 23:58:00 Test Item Value Reference Range Interpretation Comments POC VENOUS BLOOD GAS PH (test 7.353 7.33-7.45 N code = POCPHV) POC VENOUS BLOOD GAS PCO2 (test 50.8 mmHg 43-47 H code = FAQDJL8S) POC VENOUS BLOOD GAS PO2 (test 73.9 mmHG 10-50 H code = STEDE8M) POC TCO2 VENOUS (test code = 29.8 CVEROR1O) POC HCO3 VENOUS (test code = 28.3 MMOL/L 22-27 H KPMLBN3T) POC BASE EXCESS VENOUS (test code 2.7 MMOL/L -4.0-4.0 N = POCBEV) POC O2 SATURATION VENOUS (test 93.7 % 60-80 H code = SHEN3SL) CBC W/AUTO [id number] 22:55:00 Test Item Value Reference Range Interpretation Comments WHITE BLOOD CELL (test code = WBC) 11.3 K/uL 3.5-11.0 H RED BLOOD CELL (test code = RBC) 4.91 M/uL 3.54-5.02 N HEMOGLOBIN (test code = HGB) 15.3 GM/DL 11.0-15.0 H HEMATOCRIT (test code = HCT) 46.1 % 37.0-47.0 N MEAN CELL VOLUME (test code = MCV) 93.9 fL 81.0-99.0 N MEAN CELL HGB (test code = MCH) 31.2 pg 27.0-31.0 H MEAN CELL HGB CONCETRATION (test 33.2 GM/DL 33.0-37.0 N code = MCHC) RED CELL DISTRIBUTION WIDTH CV 14.3 % 11.5-14.5 N (test code = RDW) PLATELET COUNT (test code = PLT) 330 K/mm3 150-400 N MEAN PLATELET VOLUME (test code = 9.5 FL 8.8-13.1 N MPV) NEUTROPHIL % (test code = NT%) 76.4 % 40.0-76.0 H LYMPHOCYTE % (test code = LY%) 14.5 % 15.0-40.0 L MIXED % (test code = MX%) 9.1 % 3.0-15.0 N NEUTROPHIL # (test code = NT#) 8.7 K/uL 1.8-7.6 H LYMPHOCYTE # (test code = LY#) 1.6 K/uL 1.0-3.8 N MIXED # (test code = MX#) 1.0 k/mm3 0.1-0.8 H BNP [id number] 21:57:00 Test Item Value Reference Range Interpretation Comments BNP RAPID (test 166.0 pg/mL 0.0-100.0 H Performed by certified code = BNPRAP) 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 [facility] TROPONIN-I [id number] 21:41:00 Test Item Value Reference Range Interpretation Comments TROPONIN-I RAPID 0.10 ng/mL 0.00-0.08 HH Performed b y certified (test code = 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 [facility] TROPIRAP) DwpWuqqm-ca-Dpx e test, critical value notification anddocumentatio n is done by nursing staff. Negative: <= 0.08 Positiv e: >= 0.09An eleva agustin troponin value alone is not sufficient todi agnose a myocardial infa rction. Rather, the pat ient sclinical prese ntation (history, physi josephine exam) and ECGshould b e used in conjunction wit h troponin in thediagnosti c evaluation of suspected my ocardial infarction. Ase rial sampling protoc ol is recommended to facilitate the identificat ion of temporal change s in troponin levels characteristic of [place]. Coronavirus 2019 nCoV [id number] 21:38:00 Test Item Value Reference Range Interpretation Comments Coronavirus 2019 Negative Negative Performed b y certified nCoV Bedside (lab tester at [facility] code = CtrNegative res ults should [id number]) be treated as presumptive and, ifinconsis tent with clinical signs and symptoms or necessaryfor patient management, yohana uld be tested with an alternativemole cular assay. Negative result s do not preclude EORK-TdR-9vitwm tion and should not be u sed as the sole basis forp atient management deci sions. Negative result s should beconsidered in the context of a patient's recent exposures,histo ry, presence of clinical sig ns and symptoms consis tentwith COVID-19. BASIC METABOLIC [id number] 21:32:00 Test Item Value Reference Range Interpretation Comments SODIUM (test code = NA/ABG) 142 MEQ/L 134-147 N POTASSIUM (test code = K/ABG) 4.3 MEQ/L 3.4-5.0 N CHLORIDE (test code = CL/ABG) 104 MEQ/L 100-108 N CREATININE ABG (test code = 0.5 mg/dL 0.6-1.0 L CREAABG) POC IONIZED CALCIUM (test code = 1.21 MMOL/L 1.12-1.32 N POCCA) POC GLUCOSE (test code = POCGLU) 128 MG/DL POC LACTIC [id number] 21:32:00 Test Item Value Reference Range Interpretation Comments POC LACTIC ACID (test code = 1.4 mmol/l 0.9-1.7 N POCLAC) POC VENOUS BLOOD [id number] 21:32:00 Test Item Value Reference Range Interpretation Comments POC VENOUS BLOOD GAS PH (test 7.297 7.33-7.45 L code = POCPHV) POC VENOUS BLOOD GAS PCO2 (test 61.8 mmHg 43-47 HH code = NQOLIB4E) POC VENOUS BLOOD GAS PO2 (test 28.3 mmHG 10-50 N code = NPQZB8N) POC TCO2 VENOUS (test code = 32.1 WPBLII5P) POC HCO3 VENOUS (test code = 30.2 MMOL/L 22-27 H UGSRIU9I) POC BASE EXCESS VENOUS (test code 3.7 MMOL/L -4.0-4.0 N = POCBEV) POC O2 SATURATION VENOUS (test 44.9 % 60-80 L code = STFJ0QN) - XR CHEST 1 [id number] 00:00:00 [facility] : 1960 Sex: F FAX: Keshawn Jc MD [place]: [place] St: PRE Name: Rusty ALMAGUER FSED : 1960 Age/S: 60/F [address] [facility] Unit #: [id number] Loc: [place] [address] Phys: Zia Jc MD Acct: [id number] Dis Date: Status: PRE ER PHONE #: Exam Date: 03/05/20212115 FAX #: Reason: hypoxia EXAMS: CPT CODE: [id number] XR CHEST 1 V 31009 PROCEDURE INFORMATION: Exam: XR Chest Exam date and time: 03/05/2021 9:09 PM Age: 60 years old Clinical indication: Chest wall pain; Additional info: Hypoxia TECHNIQUE: Imaging protocol: XR of the chest. Vi ews: 1 view. COMPARISON: MRI C-SPINE W/O CONT 01/20/2021 10:16 AM FINDINGS: Lungs: Pulmonary vascular congestion is seen with possible mild edema. Pleural spaces: No pleural effusions identified. Heart/Mediastinum: The cardiomediastinal silhouette is upper limits normal for size. Bones/joints: No acute bony finding. IMPRESSION: Pulmonary vascular congestion with probable edema. at 2129 Reported and signed by: Devyn Martínez M.D. 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 [facility] GLUCOSE [id number] 07:35:00 Test Item Value Reference Range Interpretation Comments GLUCOSE BEDSIDE (test 105 MG/DL 70-110 N Perfor med by certified code = GLUBED) 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 [facility] GLUCOSE [id number] 20:48:00 Test Item Value Reference Range Interpretation Comments GLUCOSE BEDSIDE (test 135 MG/DL 70-110 H Perfor med by certified code = GLUBED) 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 [facility] GLUCOSE [id number] 16:40:00 Test Item Value Reference Range Interpretation Comments GLUCOSE BEDSIDE (test 129 MG/DL 70-110 H Perfor med by certified code = GLUBED) 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 [facility] GLUCOSE [id number] 12:08:00 Test Item Value Reference Range Interpretation Comments GLUCOSE BEDSIDE (test 178 MG/DL 70-110 H Perfor med by certified code = GLUBED) 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 [facility] GLUCOSE [id number] 08:26:00 Test Item Value Reference Range Interpretation Comments GLUCOSE BEDSIDE (test 91 MG/DL 70-110 N Perfor med by certified code = GLUBED) 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 [facility] CBC W/AUTO [id number] 08:06:00 Test Item Value Reference Range Interpretation Comments WHITE BLOOD CELL (test code = 8.8 x10 3/uL 4.5-11.0 N WBC) RED BLOOD CELL (test code = 5.16 x10 6/uL 3.54-5.02 H RBC) HEMOGLOBIN (test code = HGB) 16.3 g/dL 11.0-15.0 H HEMATOCRIT (test code = HCT) 50.3 % 33.0-45.0 H MEAN CELL VOLUME (test code = 97.5 fL 81.0-99.0 N MCV) MEAN CELL HGB (test code = MCH) 31.6 pg 27.0-33.0 N MEAN CELL HGB CONCETRATION 32.4 g/dL 33.0-37.0 L (test code = MCHC) RED CELL DISTRIBUTION WIDTH CV 12.3 % 11.5-14.5 N (test code = RDW) RED CELL DISTRIBUTION WIDTH SD 44.5 fL 37.0-54.0 N (test code = RDW-SD) PLATELET COUNT (test code = 342 x10 3/uL 150-400 N PLT) MEAN PLATELET VOLUME (test code 9.3 fL 7.0-9.0 H = MPV) NEUTROPHIL % (test code = NT%) 67.3 % 56.0-77.0 N IMMATURE GRANULOCYTE % (test 0.2 % 0.0-2.0 N code = IG%) LYMPHOCYTE % (test code = LY%) 21.2 % 14.0-32.0 N MONOCYTE % (test code = MO%) 10.0 % 4.8-9.0 H EOSINOPHIL % (test code = EO%) 1.1 % 0.3-3.7 N BASOPHIL % (test code = BA%) 0.2 % 0.0-2.0 N NUCLEATED RBC % (test code = 0.0 % 0-0 N NRBC%) NEUTROPHIL # (test code = NT#) 5.89 x10 3/uL 2.0-7.6 N IMMATURE GRANULOCYTE # (test 0.02 x10 3/uL 0.00-0.03 N code = IG#) LYMPHOCYTE # (test code = LY#) 1.86 x10 3/uL 1.0-3.8 N MONOCYTE # (test code = MO#) 0.88 x10 3/uL 0.1-0.8 H EOSINOPHIL # (test code = EO#) 0.10 x10 3/uL 0.0-0.2 N BASOPHIL # (test code = BA#) 0.02 x10 3/uL 0.0-0.2 N NUCLEATED RBC # (test code = 0.00 x10 3/uL 0.0-0.1 N NRBC#) MANUAL DIFF REQUIRED (test code NO = MDIFF) BASIC METABOLIC [id number] 07:31:00 Test Item Value Reference Range Interpretation Comments SODIUM (test code = NA) 138 mEq/L 134-147 N POTASSIUM (test code = 3.9 mEq/L 3.4-5.0 N K) CHLORIDE (test code = 106 mEq/L 100-108 N CL) CARBON DIOXIDE (test 24 mEq/l 21-33 N code = CO2) ANION GAP (test code = 12 0-20 N GAP) GLUCOSE (test code = 76 mg/dL 70-110 GLU) BLOOD UREA NITROGEN < 5 mg/dL 7-18 L (test code = BUN) GLOMERULAR FILTRATION 126.3 90-95 H Units of measure = RATE (test code = GFR) ml/mi n/1.73 m2 CREATININE (test code = 0.5 mg/dL 0.6-1.3 L CREAT) CALCIUM (test code = 9.2 mg/dL 8.0-10.5 N CA) GLUCOSE [id number] 20:38:00 Test Item Value Reference Range Interpretation Comments GLUCOSE BEDSIDE (test 91 MG/DL 70-110 N Perfor med by certified code = GLUBED) 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 [facility] GLUCOSE [id number] 16:49:00 Test Item Value Reference Range Interpretation Comments GLUCOSE BEDSIDE (test 92 MG/DL 70-110 N Perfor med by certified code = GLUBED) 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 [facility] GLUCOSE [id number] 11:26:00 Test Item Value Reference Range Interpretation Comments GLUCOSE BEDSIDE (test 82 MG/DL 70-110 N Perfor med by certified code = GLUBED) 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 [facility] [id number] 08:47:00 Test Item Value Reference Range Interpretation Comments HGBA1C% (test code = HGBA1C%) 5.0 %A1C 4.8-6.0 N GLUCOSE [id number] 08:17:00 Test Item Value Reference Range Interpretation Comments GLUCOSE BEDSIDE (test 94 MG/DL 70-110 N Perfor med by certified code = GLUBED) 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 [facility] BASIC METABOLIC [id number] 08:12:00 Test Item Value Reference Range Interpretation Comments SODIUM (test code = NA) 142 mEq/L 134-147 N POTASSIUM (test code = 3.6 mEq/L 3.4-5.0 N K) CHLORIDE (test code = 109 mEq/L 100-108 H CL) CARBON DIOXIDE (test 24 mEq/l 21-33 N code = CO2) ANION GAP (test code = 13 0-20 N GAP) GLUCOSE (test code = 51 mg/dL 70-110 L GLU) BLOOD UREA NITROGEN 6 mg/dL 7-18 L (test code = BUN) GLOMERULAR FILTRATION 126.3 90-95 H Units of measure = RATE (test code = GFR) ml/mi n/1.73 m2 CREATININE (test code = 0.5 mg/dL 0.6-1.3 L CREAT) CALCIUM (test code = 8.9 mg/dL 8.0-10.5 N CA) GLUCOSE [id number] 07:56:00 Test Item Value Reference Range Interpretation Comments GLUCOSE BEDSIDE (test 67 MG/DL 70-110 L Perfor med by certified code = GLUBED) 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 CBC W/AUTO [id number] 07:39:00 Test Item Value Reference Range Interpretation Comments WHITE BLOOD CELL (test code = 8.2 x10 3/uL 4.5-11.0 N WBC) RED BLOOD CELL (test code = 4.76 x10 6/uL 3.54-5.02 N RBC) HEMOGLOBIN (test code = HGB) 14.8 g/dL 11.0-15.0 N HEMATOCRIT (test code = HCT) 46.3 % 33.0-45.0 H MEAN CELL VOLUME (test code = 97.3 fL 81.0-99.0 N MCV) MEAN CELL HGB (test code = MCH) 31.1 pg 27.0-33.0 N MEAN CELL HGB CONCETRATION 32.0 g/dL 33.0-37.0 L (test code = MCHC) RED CELL DISTRIBUTION WIDTH CV 12.7 % 11.5-14.5 N (test code = RDW) PLATELET COUNT (test code = 307 x10 3/uL 150-400 N PLT) NEUTROPHIL % (test code = NT%) 62.4 % 56.0-77.0 N LYMPHOCYTE % (test code = LY%) 26.9 % 14.0-32.0 N NEUTROPHIL # (test code = NT#) 5.11 x10 3/uL 2.0-7.6 N LYMPHOCYTE # (test code = LY#) 2.20 x10 3/uL 1.0-3.8 N MANUAL DIFF REQUIRED (test code NO = MDIFF) RED CELL DISTRIBUTION WIDTH SD 45.4 fL 37.0-54.0 N (test code = RDW-SD) MEAN PLATELET VOLUME (test code 9.5 fL 7.0-9.0 H = MPV) IMMATURE GRANULOCYTE % (test 0.2 % 0.0-2.0 N code = IG%) MONOCYTE % (test code = MO%) 9.6 % 4.8-9.0 H EOSINOPHIL % (test code = EO%) 0.5 % 0.3-3.7 N BASOPHIL % (test code = BA%) 0.4 % 0.0-2.0 N NUCLEATED RBC % (test code = 0.0 % 0-0 N NRBC%) IMMATURE GRANULOCYTE # (test 0.02 x10 3/uL 0.00-0.03 N code = IG#) MONOCYTE # (test code = MO#) 0.79 x10 3/uL 0.1-0.8 N EOSINOPHIL # (test code = EO#) 0.04 x10 3/uL 0.0-0.2 N BASOPHIL # (test code = BA#) 0.03 x10 3/uL 0.0-0.2 N NUCLEATED RBC # (test code = 0.00 x10 3/uL 0.0-0.1 N NRBC#) GLUCOSE [id number] 07:29:00 Test Item Value Reference Range Interpretation Comments GLUCOSE BEDSIDE (test 65 MG/DL 70-110 L Perfor med by certified code = GLUBED) 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 - MRI C-SPINE W/O [id number] 00:00:00 [facility] 1960 Sex: F FAX: Magy Raza [phone] [place]: St: ADM Name: MIHAI ALMAGUER : 1960 Age/S: 60/F [address] [place] [address] Unit #: [id number] Loc: [place] [address] Phys: Pascual Raza MD Acct: [id number] Dis Date: Status: ADM IN PHONE #: [phone] Exam Date: 01/20/20211130 FAX #: [phone] Reason: left upper extremity numbness/pain EXAMS: CPT CODE: [id number] MRI C-SPINE W/O CONT [id number] PROCEDURE INFORMATION: Exam: MR Cervical Spine Without Contrast Exam date and time: 01/20/2021 10:16 AM Age: 60 years old Clinical indication: Other: Left upper extremity numbness/pain TECHNIQUE: Imaging protocol: Multiplanar magnetic resonance images of the cervical spine without contrast. COMPARISON: No relevant prior studies available. FINDINGS: Vertebrae: There is normal al ignment of the cervical spine. Vertebral body heights are maintained. No aggressive bone marrow abnormality is present. Spinal cord: Normal signal. Moderate cord compression at C5-C6. C2-C3: 2 mm central disc herniation results in mild spinal canal stenosis. There is no significant neural foraminal narrowing. C3-C4: No significant disc disease. No significant spinal stenosis. C4-C5: Mild annular bulging is present. There is bilateral facet hypertrophy. There is mild bilateral neural foraminal narrowing and mild spinal canal stenosis. C5-C6: Disc space narrowing is present with moderate annular bulging and osteophytes. Alok ateral facet hypertrophy and ligamentum flavum hypertrophy is noted. There is 3 mm central disc herniation. There is severe spinal canal stenosis. There is moderate bilateral neural foraminal narrowing. C6-C7: Endplate osteophytes result in mild bilateral neural foraminal narrowing but no significant spinal canal stenosis. C7-T1: No significant disc disease. No significant spinal stenosis. Soft tissues: Unremarkable. Vertebral arteries: Expected flow voids in the vertebral arteries. IMPRESSION: 1. Severe spinal canal stenosisat C5-C6 with moderate cord compression. 2. No cervical spinal cord edema or myeloma lacia. 3. Moderate bilateral neural foraminal narrowing at C5-C6. 4. Small disc herniation at C2-C3. 5. Other mild degenerative changes as described. at 1300 Reported and signed by: Morris Gonzalez M.D. PAGE 1 Signed Report (CONTINUED) FAX: Magy Raza [phone] [place]: St: ADM ----- Name: BROCK ALMAGUERULA [facility] : 1960 Age/S: 60/F [address] [place] [address] Unit #: [id number] Loc: [address] [address] Phys: Magy Raza MD Acct: [id number] Dis Date: Status: ADM IN PHONE #: [phone] Exam Date: 01/20/2021 1131 FAX #: [phone] Reason:left upper extremity numbness/pain EXAMS: CPT CODE: [id number] MRI C- SPINE W/O CONT [id number] <Continued> CC: Magy Raza MD Technologist: Reji Morales, RT(R)(CT)(MR) Trnscrd Date/Time/By: 01/20/2021 (1300) : By: [email or web address] Orig Print D/T: S: 01/20/2021 (1301) PAGE 2 Signed Report- MRI L-SPINE W/O CONT 2021-01-20 00:00:00 [facility] : 1960 Sex: F FAX: Magy Raza [phone] [place]: St: ADM Name: MIHAI ALMAGUER : 1960 Age/S: 60/F [address] [place] [address] Unit #: [id number] Loc: [address] [address] Phys: Pascual Raza MD Acct: [id number] Dis Date: Status: ADM IN PHONE #: [phone] Exam Date: 01/20/2021 1131 FAX #: [phone] Reason: left lower extremity pain/ right lower extremit EXAMS: CPT CODE: [id number] MRI L-SPINE W/O CONT [id number] PROCEDURE INFORMATION: Exam: MR Lumbar Spine W ithout Contrast Exam date and time: 01/20/2021 10:30 AM Age: 60 years old Clinical indication: Other: Left lower extremity pain/ right lower extremity pain TECHNIQUE: Imaging protocol: Multiplanar magnetic resonance images of the lumbar spine without int ravenous contrast. COMPARISON: CT L-SPINE W/O CONTRAST 01/19/2021 9:50 AM FINDINGS: Vertebrae: There is edema throughout the L3 vertebral body. L3 superior endplate Schmorl's node is noted. No vertebral body height loss is noted. Alignment is preserved.Spinal cord: Conus medullaris ends at L1. L1-L2: Bilateral facet hypertrophy is present. There is no significant spinal canal stenosis or neural foraminal narrowing. L2-L3: Mild annular bulging is present. Bilateral facet hypertrophy and ligamentum flavum hypertrophy is present. There is no significant spinal canal stenosis or neural foraminal narrowing. L3-L4: Bilateral facet hypertrophy and ligamentum flavum hypertrophy is noted. There is mild annular bulging. There is mild bilateral neural foraminal narrowing and no significant spinal canal stenosis. L4-L5: Bilateral facet hypertrophy is noted. There is moderate annular bulging. There is moderate bilateral neural foraminal narrowing and mild spinal canal stenosis. L5-S1: 3 mm central disc herniation is noted. There is minimal annular bulging and posterolateral osteophytes. Bilateral facet hypertrophy is present. There is mild bilateral neural foraminal narrowing and no significant spinal canal stenosis. Soft tissues: Unremar kable. Kidneys and ureters: Incidental left renal cyst measures 1.8 cm. IMPRESSION: 1. Edema throughout L3 vertebral bodies suggestive of acute or subacute L3 superiorendplate Schmorl's node. 2. No vertebral body height loss. Normal alignment. 3. Moderate bilateral neural foraminal narrowing at L4-L5. 4. Other mild degenerative changes as described. PAGE 1 Signed Report (CONTINUED) FAX: Magy Raza [phone] [place]: St: ADM Name: DERRICK ALMAGUER [facility] : 1960 Age/S: 60/F [address] [place] [address] Unit #: [id number] Loc: [address] [address] Phys: Magy Raza MD Acct: [id number] Dis Date: Status: ADM IN PHONE #: [phone] Exam Date: 01/20/2021 1131 FAX #: [phone] Reason: left lower extremity pain/ right lower extremit EXAMS: CPT CODE: [id number] MRI L-SPINE W/O CONT 56930 <Continued> at 1305 Reported and signed by: Morris Gonzalez M.D. 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 CBC W/AUTO [id number] 14:45:00 Test Item Value Reference Range Interpretation Comments WHITE BLOOD CELL (test code = WBC) 9.5 K/uL 3.5-11.0 N RED BLOOD CELL (test code = RBC) 5.22 M/uL 3.54-5.02 H HEMOGLOBIN (test code = HGB) 16.9 GM/DL 11.0-15.0 H HEMATOCRIT (test code = HCT) 49.5 % 37.0-47.0 H MEAN CELL VOLUME (test code = MCV) 94.8 fL 81.0-99.0 N MEAN CELL HGB (test code = MCH) 32.4 pg 27.0-31.0 H MEAN CELL HGB CONCETRATION (test 34.1 GM/DL 33.0-37.0 N code = MCHC) RED CELL DISTRIBUTION WIDTH CV 13.6 % 11.5-14.5 N (test code = RDW) PLATELET COUNT (test code = PLT) 300 K/mm3 150-400 N MEAN PLATELET VOLUME (test code = 9.6 FL 8.8-13.1 N MPV) NEUTROPHIL % (test code = NT%) 78.2 % 40.0-76.0 H LYMPHOCYTE % (test code = LY%) 17.5 % 15.0-40.0 N MIXED % (test code = MX%) 4.3 % 3.0-15.0 N NEUTROPHIL # (test code = NT#) 7.4 K/uL 1.8-7.6 N LYMPHOCYTE # (test code = LY#) 1.7 K/uL 1.0-3.8 N MIXED # (test code = MX#) 0.4 k/mm3 0.1-0.8 N TROPONIN-I [id number] 08:55:00 Test Item Value Reference Range Interpretation Comments TROPONIN-I RAPID 0.01 ng/mL 0.00-0.08 N Performed b y certified (test code = 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 Rather, the pat ient sclinical prese ntation (history, physi josephine exam) and ECGshould b e used in conjunction wit h troponin in thediagnosti c evaluation of s uspected myocardial infa rction. Aserial samplin g protocol is recommended to facilitate the identification of temporal changes in trop onin levels characteristic of [place]. BASIC METABOLIC [id number] 08:44:00 Test Item Value Reference Range Interpretation Comments SODIUM (test code = NA/ABG) 143 MEQ/L 134-147 N POTASSIUM (test code = K/ABG) 4.3 MEQ/L 3.4-5.0 N CHLORIDE (test code = CL/ABG) 105 MEQ/L 100-108 N CREATININE ABG (test code = 0.6 mg/dL 0.6-1.0 N CREAABG) POC IONIZED CALCIUM (test code = 1.12 MMOL/L 1.12-1.32 N POCCA) POC GLUCOSE (test code = POCGLU) 89 MG/DL - CT ABD PELVIS [id number] 00:00:00 [facility] : 1960 Sex: F Name: BROCK ALMAGUERJANE Ulloa FSED : 1960 Age/S: 60 / F [address] [facility]. Unit #: [id number] Loc: [place] [address] Phys: Bryce Davis MD Acct: [id number] Dis Date: Status: PRE ER PHONE #: Exam Date: 01/19/2021 0955 FAX #: Reason: Abd pain. lower abd EXAMS: CPT CODE: [id number] CT ABD PELVIS W/CONT 45827 PROCEDURE INFORMATION: Exam: CT Abdomen And Pelvis With Contrast Exam date and time: 12/24 9:55 AM Age: 60 years old Clinical indication: Abdominal pain; Generalized; Additional info: Abd pain. Lower abd TECHNIQUE: Imaging protocol: Computed tomography of the abdomen and pelvis with contrast. Radiation optimization: All CT scans at this facility use at least one of these dose optimization techniques: automated exposure control; mA and/or kV adjustment per patient size (includes targeted exams where dose is matched to clinical indication); or iterative reconstruction. Contrast material: 300; Contrast volume: 100 ml; Contrast route: INTRAVENOUS (IV); COMPARISON: CT L-SPINE W/O C ONTRAST 01/19/2021 9:50 AM FINDINGS: Lungs: There is atelectasis in the in the dependent portions of both lower lungs. Liver: Normal. No mass. Gallbladder and bile ducts: Cholecystectomy surgical clips. Common duct measures 7 mm. Pancreas: Normal. No ductal dilation. Spleen: Splenic calcifications. Adrenal glands: Normal. No mass. Kidneys and ureters: 1.6 cm left renal cyst. Stomach and bowel: Left colonic and sigmoid colonic diverticulosis is present. There is mild wall thickening of the sigmoid colon. Appendix: Normal appendix. Intraperitoneal space: Unremarkable. No free air. No significant fl uid collection. Vasculature: Unremarkable. No abdominal aortic aneurysm. Lymph nodes: Unremarkable. No enlarged lymph nodes. Urinary bladder: Urinary bladder is collapsed around a Nolen catheter. Reproductive: Unremarkable as visualized. Bones/joints: Mild deg enerative changes in lumbar spine. Soft tissues: Small fat containing umbilical hernia. Rectus diastasis. IMPRESSION: 1. Mild wall thickening of sigmoid colon may represent colitis or diverticulitis. 2. Left renal cyst. PAGE 1Signed Report (CONTINUED) Name: DERRICK ALMAGUER FSED : 1960 Age/S: 60 / F [address] [facility] Unit #: [id number] Loc: [place] [address] Phys: Bryce aDvis MD Acct: [id number] Dis Date: Status: PRE ER PHONE #: Exam Date: 01/19/2021 0955 FAX #: Reason: Abd pain. lower abd EXAMS: CPT CODE: [id number] CT ABD PELVIS W/CONT 90138 <Continued> 3. Cholecystectomy surgical clips. 4.Normal appendix. 5. No bowel obstruction, free air, or abscess. COMMENTS:Consistent with the [employer]'s Incidental Findings Committee white paper (J Am Julian Radiol 2018): Any incidental renal lesion less than 1 cm or classified as too small to characterize, or any incidental cystic renal lesion characterized as simple-appearing, is likely benign. No follow-up imaging is recommended for these lesions per consensus recommendations based on imaging criteria. Electronically Signedby Richard Gonzalez on 01/19/2021 at 1043 Reported and signed by: Morris Gonzalez M.D. CC: Bryce Davis MD Technologist:Lainey Velazquez, (R)(CT) CTDI: DLP: Trnscb Date/Time: 01/19/2021 (1043) [email or web address] Orig Print D/T: S: 01/19/2021 (1041) PAGE 2 Signed Report- CT L-SPINE W/O [id number] 00:00:00 [facility] RBOCK [facility] : 1960 Sex: F Name: BROCK ALMAGUERULA Artemio FSED : 1960 Age/S: 60 / F [address] [facility] Unit #: [id number] Loc: [place] [address] Phys: Bryce Davis MD Acct: [id number] Dis Date: Status: PRE ER PHONE #: Exam Date: 01/19/2021 7165 FAX #: Reason: Abd pain. lower abd, back pain EXAMS: CPT CODE: [id number] CT L-SPINE W/O CONTRAST 02606 PROCEDURE INFORMATION: Exam: CT Lumbar Spine Without Contrast Exam date and time: 9:50 AM Age: 60 years old Clinical indication: Low back pain; Additional info: Abdpain. Lower abd, back pain TECHNIQUE: Imaging protocol: Computed tomography images of the lumbar spine without contrast. Radiation optimization: All CT scans at this facility use at least one of these dose optimization techniques: automated exposure control; mA and/or kV adjustment per patient size (includes targeted exams where dose is matched to clinical indication); or iterative reconstruction. COMPARISON: No relevant prior studies available. FINDINGS: Vertebrae: There are 5 lumbar type vertebrae. There samantha left paracentral superior endplate depression L3 vertebral body contiguous with the disc space with sclerotic margins, configuration compatible with intravertebral disc herniation--Schmorl's node. Vertebral body heights and alignment are otherwise maintained. No acute fracture. Multilevel lumbar spondylosis. Multilevel facet hypertrophy. Visualized sacrum is intact. There are mild degenerative changes of the sacroiliac joints. L1-L2: No focal disc protrusion. Mild facet hypertrophy. There is no severe canal stenosis. Mild bilateral foraminal narrowing. L2-L3: Diffuse disc bulge. Mild facet hypertrophy. Mild canalnarrowing. Thecal sac maintained 10 mm AP. Mild bilateral foraminal narrowing. L3-L4: Diffuse disc bulge. Bilateral facet hypertrophy. Mild canal narrowing. Thecal sac 11 mm AP. Mild bilateral foraminal narrowing. L4- L5: Diffuse disc bulge. Partial ossification of the annulus. Paracentral disc extrusion extending 5 mm posterior of the cortical margins. Bilater al facet hypertrophy. Canal narrowing most pronounced lateral aspects. Thecal sac 10 mm AP. Moderate bilateral foraminal narrowing. L5- S1: Diffuse disc bulge. Partial ossification of the annulus. Small central posterior disc protrusion. Mild facet hypertrophy. There is no canal stenosis. Moderate bilateral foraminal narrowing. Vasculature: Calcified plaque abdominal aorta and branch vessels. Calcification left renal sinus compatible with vascular calcification. Soft tissues: The anterior and posterior paraspinous soft tissues PAGE1 Signed Report (CONTINUED) Name: DERRICK ALMAGUER FSED : 1960 Age/S: 60 / F [address] [facility] Unit #: [id number] Loc: [place] [address] Phys: Bryce Davis MD Acct: [id number] Dis Date: Status: PRE ER PHONE #: Exam Date: 01/19/2021 7399 FAX #: Reason: Abd pain. lower abd, back pain EXAMS: CPT CODE: [id number] CT L-SPINEW/O CONTRAST 50839 <Continued> are unremarkable. IMPRESSION: 1. Multilevel lumbar spondylosis and facet arthropathy. Multilevel canal narrowing without severe stenosis. 2. Central superior endplate depression L3 compatible with Schmorl's node, likely chronic though age indeterminate by CT. at 1042 Reported and signed by: Torsten Carr M.D. CC: Bryce Davis MD Technologist:Lainey Velazquez, RT(R)(CT) CTDI: DLP: Trnscb Date/Time: 01/19/2021 (1041) Abimael Orig Print D/T: S: 01/19/2021 (104) PAGE 2 Signed ReportOTO [id number] 15:33:00IMAGES ARE AVAILABLE FOR VIEWING.[facility]
[2021-07-23] MEDS ORDERED: NA CHLORIDE 0.9% 1,000 ML ONE (23:20)
[2021-07-23 23:26] LABS: Absolute Lymphocytes (CBC) 1.6 K/uL (0.7-4.9); Hematocrit 44.4 % (36.0-45.0); Lymphocytes % 11.2 % (15.3-44.8); MPV 7.1 fL (7.6-11.3); RBC Red Blood Cell Count 5.08 M/uL (3.86-4.86)
[2021-07-23 23:27] LABS: Protime INR 0.96
[2021-07-23 23:45] LABS: ALT/SGPT 23 U/L (12-78); AST/SGOT 18 U/L (15-37); Albumin 3.4 g/dL (3.4-5.0); Alkaline Phosphatase 81 U/L (45-117); BUN Blood Urea Nitrogen 9 mg/dL (7-18); Bicarbonate 27 mmol/L (21-32); Bilirubin Direct 0.1 mg/dL (0-0.2); Bilirubin Total 0.3 mg/dL (0.2-1.0); Glucose Level 110 mg/dL (74-106); Magnesium 2.1 mg/dL (1.8-2.4); NT PRO-BNP 107 pg/mL (<125); Potassium 4.1 mmol/L (3.5-5.1); Protein, Total 7.6 g/dL (6.4-8.2); Sodium Level 140 mmol/L (136-145); Troponin High Sensitivity 6.2 pg/mL (<58.9)
--- NOTE | 2021-07-24 00:44 | ER ---
Nurse's Notes [facility] Name: Mary Vazquez Age: 60 yrs Sex: Female : 1960 Arrival Date: 07/23/2021 Time: 20:48 Bed 20 Private MD: Diagnosis: Pulmonary fibrosis, unspecified;COPD/ Chronic obstructive pulmonary disease, unspecified;Cervical disc disorder with radiculopathy, cervicothoracic region;Chronic pain syndrome Presentation: 07/23 21:13 Chief complaint: Patient states: "Last night int he middle of the night my right arm ab2 woke me up it was hurting so bad since then its been hurting on and off but tonight it became unbearable." Pt c/o right arm pain and swelling. Coronavirus screen: Vaccine status: Patient reports being unvaccinated. Client denies travel out of the [place] in the last 14 days. At this time, the client does not indicate any symptoms associated with coronavirus-19. Ebola Screen: Patient negative for fever greater than or equal to 101.5 degrees Fahrenheit, and additional compatible Ebola Virus Disease symptoms Patient denies exposure to infectious person. Patient denies travel to an Ebola-affected area in the 21 days before illness onset. No symptoms or risks identified at this time. Initial Sepsis Screen: Does the patient meet any 2 criteria? No. Patient's initial sepsis screen is negative. Does the patient have a suspected source of infection? No. Patient's initial sepsis screen is negative. Risk Assessment: Do you want to hurt yourself or someone else? Patient reports no desire to harm self or others. Onset of symptoms is unknown. 21:13 Method Of Arrival: Wheelchair ab2 21:13 Acuity: ELVER 3 ab2 Triage Assessment: 21:16 General: Appears in no apparent distress. uncomfortable, Behavior is calm, cooperative, ab2 appropriate for age. Pain: Complains of pain in right arm. Cardiovascular: Denies chest pain, shortness of breath, Patient's skin is warm and dry. Respiratory: Airway is patent Respiratory effort is even, unlabored, Respiratory pattern is regular, symmetrical. GI: No deficits noted. Musculoskeletal: Reports pain in right arm. Historical: - Allergies: 21:15 PENICILLINS; ab2 21:15 Keflex; ab2 21:15 Morphine; ab2 21:15 Benadryl; ab2 21:15 Adhesives; ab2 - PMHx: 21:15 Diabetes mellitus; Chronic obstructive lung disease; Rheumatoid arthritis; Bipolar ab2 disorder; Anxiety; Stenosis of Back; Irritable bowel syndrome; Gastroesophageal reflux disease; - Immunization history:: Adult Immunizations up to date. - Social history:: Smoking status: Patient reports the use of cigarette tobacco products, smokes two packs cigarettes per day. - Family history:: not pertinent. Screenin:26 Abuse screen: Denies threats or abuse. Denies injuries from another. Nutritional kd3 screening: No deficits noted. Tuberculosis screening: No symptoms or risk factors identified. Fall Risk None identified. Assessment: 21:26 General: Appears uncomfortable, Behavior is calm, cooperative. Pain: Complains of pain kd3 in right arm. Neuro: Level of Consciousness is awake, alert, obeys commands, Oriented to person, place, time, situation. Cardiovascular: Patient's skin is warm and dry. Respiratory: Airway is patent Trachea midline Respiratory effort is even, unlabored, Respiratory pattern is regular. Vital Signs: 21:13 BP 121 / 76; Pulse 88; Resp 18; Temp 97.3; Pulse Ox 92% on R/A; Weight 79.38 kg; Height ab2 5 ft. 6 in. (167.64 cm); Pain 10/10; 21:13 Body Mass Index 28.25 (79.38 kg, 167.64 cm) ab2 ED Course: 20:48 Patient arrived in ED. jj6 21:15 Triage completed. ab2 21:16 Arm band placed on left wrist. ab2 21:18 Leah Whitley, ARETHA is Primary Nurse. kd3 21:25 Phani Lopez MD is Attending Physician. nadir 21:26 Patient has correct armband on for positive identification. kd3 22:11 UPPER EXTREMITY VENOUS UNILATE In Process Unspecified. EDMS 22:32 XRAY Chest (1 view) In Process Unspecified. EDMS 22:40 CT C Spine In Process Unspecified. EDMS 0502 01:11 No provider procedures requiring assistance completed. IV discontinued, intact, kd3 bleeding controlled, No redness/swelling at site. Pressure dressing applied. Administered Medications: 07/23 23:40 Drug: NS 0.9% 1000 ml Route: IV; Rate: 125 ml/hr; Site: left hand; kd3 07/24 00:53 Drug: Valium (diazepam) 5 mg Route: PO; kd3 00:54 Drug: Decadron - Dexamethasone 10 mg Route: IVP; Site: right antecubital; kd3 00:54 Drug: Ketorolac 30 mg Route: IVP; Site: right antecubital; kd3 00:54 Drug: Dilaudid (HYDROmorphone) 1 mg Route: IVP; Site: right antecubital; kd3 00:54 Drug: Zofran (Ondansetron) 4 mg Route: IVP; Site: right antecubital; kd3 Outcome: 00:44 Discharge ordered by . nadir 01:11 Discharged to home ambulatory. kd3 01:11 Condition: stable 01:11 Discharge instructions given to patient, family, Instructed on discharge instructions, follow up and referral plans. medication usage, Demonstrated understanding of instructions, follow-up care, medications, Prescriptions given X 4. 01:12 Patient left the ED. kd3 Signatures: Dispatcher [employer] EDPhani Bright MD MD cha Jeffries, Jennifer jj6 Doucette, Kyli, RN RN kd3 Kai Wilson
--- NOTE | 2021-07-24 00:44 | EDPHYS ---
Physician Documentation [facility] Name: Mray Vazquez Age: 60 yrs Sex: Female : 1960 Arrival Date: 07/23/2021 Time: 20:48 Bed 20 Private MD: ED Physician Phani Lopez HPI: 07/24 00:38 This 60 yrs old Female presents to ER via Wheelchair with complaints of Arm nadir Pain. 00:38 The patient or guardian complains of decreased range of motion, pain, that is acute. nadir The complaints affect the right bicep, dorsal aspect of right forearm, right tricep and palmar aspect of right forearm. Context: The problem was sustained at an unknown location. Onset: The symptoms/episode began/occurred 2 day(s) ago. Treatment prior to arrival includes: no previous treatment. Modifying factors: The symptoms are alleviated by nothing. remaining still, the symptoms are aggravated by movement, bending arm. Associated signs and symptoms: Pertinent positives: decreased range of motion, pain. Severity of symptoms: At their worst the symptoms were moderate, in the emergency department the symptoms are unchanged. The patient has not experienced similar symptoms in the past. Historical: - Allergies: 07/23 21:15 PENICILLINS; ab2 21:15 Keflex; ab2 21:15 Morphine; ab2 21:15 Benadryl; ab2 21:15 Adhesives; ab2 - PMHx: 21:15 Diabetes mellitus; Chronic obstructive lung disease; Rheumatoid arthritis; Bipolar ab2 disorder; Anxiety; Stenosis of Back; Irritable bowel syndrome; Gastroesophageal reflux disease; - Immunization history:: Adult Immunizations up to date. - Social history:: Smoking status: Patient reports the use of cigarette tobacco products, smokes two packs cigarettes per day. - Family history:: not pertinent. ROS: 07/24 00:38 Constitutional: Negative for fever, chills, and weight loss, Eyes: Negative for injury, nadir pain, redness, and discharge, ENT: Negative for injury, pain, and discharge, Cardiovascular: Negative for chest pain, palpitations, and edema, Respiratory: Negative for shortness of breath, cough, wheezing, and pleuritic chest pain, Abdomen/GI: Negative for abdominal pain, nausea, vomiting, diarrhea, and constipation, Back: Negative for injury and pain, : Negative for injury, bleeding, discharge, and swelling, Skin: Negative for injury, rash, and discoloration, Neuro: Negative for headache, weakness, numbness, tingling, and seizure, Psych: Negative for depression, anxiety, suicide ideation, homicidal ideation, and hallucinations, Allergy/Immunology: Negative for hives, rash, and allergies, Endocrine: Negative for neck swelling, polydipsia, polyuria, polyphagia, and marked weight changes, Hematologic/Lymphatic: Negative for swollen nodes, abnormal bleeding, and unusual bruising. Neck: Positive for pain with movement, pain at rest. MS/extremity: Positive for decreased range of motion, pain, of the right bicep and right tricep. Exam: 00:38 Constitutional: This is a well developed, well nourished patient who is awake, alert, nadir and in no acute distress. Head/Face: Normocephalic, atraumatic. Eyes: Pupils equal round and reactive to light, extra-ocular motions intact. Lids and lashes normal. Conjunctiva and sclera are non-icteric and not injected. Cornea within normal limits. Periorbital areas with no swelling, redness, or edema. ENT: Nares patent. No nasal discharge, no septal abnormalities noted. Tympanic membranes are normal and external auditory canals are clear. Oropharynx with no redness, swelling, or masses, exudates, or evidence of obstruction, uvula midline. Mucous membranes moist. Neck: Trachea midline, no thyromegaly or masses palpated, and no cervical lymphadenopathy. Supple, full range of motion without nuchal rigidity, or vertebral point tenderness. No Meningismus. Chest/axilla: Normal chest wall appearance and motion. Nontender with no deformity. No lesions are appreciated. Cardiovascular: Regular rate and rhythm with a normal S1 and S2. No gallops, murmurs, or rubs. Normal PMI, no JVD. No pulse deficits. Respiratory: Lungs have equal breath sounds bilaterally, clear to auscultation and percussion. No rales, rhonchi or wheezes noted. No increased work of breathing, no retractions or nasal flaring. Abdomen/GI: Soft, non-tender, with normal bowel sounds. No distension or tympany. No guarding or rebound. No evidence of tenderness throughout. Back: No spinal tenderness. No costovertebral tenderness. Full range of motion. Female : Normal external genitalia. Skin: Warm, dry with normal turgor. Normal color with no rashes, no lesions, and no evidence of cellulitis. Neuro: Awake and alert, GCS 15, oriented to person, place, time, and situation. Cranial nerves II-XII grossly intact. Motor strength 5/5 in all extremities. Sensory grossly intact. Cerebellar exam normal. Normal gait. Psych: Awake, alert, with orientation to person, place and time. Behavior, mood, and affect are within normal limits. 00:38 Musculoskeletal/extremity: ROM: limited active range of motion due to pain, limited passive range of motion due to pain, Circulation is intact in all extremities. Sensation intact. Joints: All joints appear normal with full range of motion. DVT Exam: no swelling, no appreciated bluish discoloration, no erythema, no increased warmth, pain, tenderness. 00:47 ECG was reviewed by the Attending Physician. [facility] Vital Signs: 07/23 21:13 BP 121 / 76; Pulse 88; Resp 18; Temp 97.3; Pulse Ox 92% on R/A; Weight 79.38 kg; Height ab2 5 ft. 6 in. (167.64 cm); Pain 10/10; 21:13 Body Mass Index 28.25 (79.38 kg, 167.64 cm) ab2 MDM: 21:25 Patient medically screened. [facility] 07/24 00:41 Differential diagnosis: closed fracture, contusion. Data reviewed: vital signs, nurses [facility] notes, lab test result(s), EKG, radiologic studies, CT scan, doppler, plain films. 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 Test interpretation: by ED physician or midlevel provider: ECG, plain radiologic studies. Counseling: I had a detailed discussion with the patient and/or guardian regarding: the historical points, exam findings, and any diagnostic results supporting the discharge/admit diagnosis, lab results, radiology results, the need for outpatient follow up, for definitive care, a family practitioner, a neurosurgeon. 07/23 21:27 Order name: Basic Metabolic Panel; Complete Time: 00:04 [facility] 07/23 21:27 Order name: CBC with Diff; Complete Time: 00:04 [facility] 07/23 21:27 Order name: LFT's; Complete Time: 00:04 [facility] 07/23 21:27 Order name: Magnesium; Complete Time: 00:04 [facility] 07/23 21:27 Order name: NT PRO-BNP; Complete Time: 00:04 [facility] 07/23 21:27 Order name: PT-INR; Complete Time: 00:04 [facility] 07/23 21:27 Order name: Troponin HS; Complete Time: 00:04 [facility] 07/23 21:27 Order name: XRAY Chest (1 view) [facility] 07/23 21:27 Order name: CT C Spine [facility] 07/23 22:11 Order name: UPPER EXTREMITY VENOUS UNILATE EDDC 07/23 21:27 Order name: EKG; Complete Time: 21:28 [facility] 07/23 21:27 Order name: Cardiac monitoring; Complete Time: 23:50 [facility] 07/23 21:27 Order name: EKG - Nurse/Tech; Complete Time: 22:28 [facility] 07/23 21:27 Order name: IV Saline Lock; Complete Time: 23:50 [facility] 07/23 21:27 Order name: Labs collected and sent; Complete Time: 23:50 [facility] 07/23 21:27 Order name: O2 Per Protocol; Complete Time: 23:50 [facility] 07/23 21:27 Order name: O2 Sat Monitoring; Complete Time: 23:50 [facility] 07/24 00:31 Order name: Sling; Complete Time: 01:11 [facility] EC:47 Rate is 84 beats/min. Rhythm is regular. QRS [place] is Normal. NE interval is normal. QRS nadir interval is normal. QT interval is normal. No Q waves. T waves are Normal. No ST changes noted. Clinical impression: NSR w/ Non-specific ST/T Changes and No evidence of ischemia. Interpreted by me. Reviewed by me. Administered Medications: 07/23 23:40 Drug: NS 0.9% 1000 ml Route: IV; Rate: 125 ml/hr; Site: left hand; kd3 07/24 00:53 Drug: Valium (diazepam) 5 mg Route: PO; kd3 00:54 Drug: Decadron - Dexamethasone 10 mg Route: IVP; Site: right antecubital; kd3 00:54 Drug: Ketorolac 30 mg Route: IVP; Site: right antecubital; kd3 00:54 Drug: Dilaudid (HYDROmorphone) 1 mg Route: IVP; Site: right antecubital; kd3 00:54 Drug: Zofran (Ondansetron) 4 mg Route: IVP; Site: right antecubital; kd3 Disposition Summary: 07/24/21 00:44 Discharge Ordered Location: Home [facility] Problem: new nadir Symptoms: have improved nadir Condition: Fair nadir Diagnosis - Pulmonary fibrosis, unspecified nadir - COPD/ Chronic obstructive pulmonary disease, unspecified nadir - Cervical disc disorder with radiculopathy, cervicothoracic region nadir - Chronic pain syndrome nadir Followup: nadir - With: Private Physician - When: 1 - 2 days - Reason: Recheck today's complaints, Continuance of care, Re-evaluation by your physician Discharge Instructions: - Discharge Summary Sheet nadir - Cervical Radiculopathy nadir - Chronic Bronchitis, Adult nadir - Chronic Obstructive Pulmonary Disease nadir - Chronic Pain, Adult nadir - Tobacco Use Disorder [facility] Forms: - Medication Reconciliation Form [facility] - Thank You Letter nadir - Antibiotic Education nadir - Prescription Opioid Use [facility] Prescriptions: - Valium 5 mg Oral Tablet - take 1 tablet by ORAL route every 8 hours As needed; 20 tablet; Refills: 0, [facility] Product Selection Permitted - Diclofenac Sodium 75 mg Oral tablet,delayed release (DR/EC) - take 1 tablet by ORAL route 2 times per day; 2 tablet; Refills: 0, Product [facility] Selection Permitted - Tylenol-Codeine #3 300 mg-30 mg Oral - take 2 tablet by ORAL route every 6 hours; 24 tablet; Refills: 0, Product [facility] Selection Permitted - dexamethasone 2 mg Oral tablet - take 1 tablet by ORAL route 2 times per day; 10 tablet; Refills: 0, Product jmm Selection Permitted Signatures: Dispatcher [employer] EDMS Phani Lopez MD MD cha Attema, Lee, FLANGING ROLL OPERATOR-C FLANGING ROLL OPERATOR-Cla1 Leah Whitley RN RN kd3 Kai Wilson2 Corrections: (The following items were deleted from the chart) 07/23 22:11 21:28 Extremity Venous Uni [email or web address] ordered. EDDC EDMS
[2021-07-24] MEDS ORDERED: DIAZEPAM 5 MG TABLET ONE (00:47)
[2021-07-24] MEDS ORDERED: HYDROMORPHONE HCL 0.5 MG/0.5 ML INJ ONE (00:47)
[2021-07-24] MEDS ORDERED: dexAMETHasone 10 MG/ML VIAL ONE (00:48)
[2021-07-24] MEDS ORDERED: KETOROLAC 30 MG/ML INJ ONE (00:48)
[2021-07-24] MEDS ORDERED: ONDANSETRON 4 MG/2 ML VIAL ONE (00:48)
[2021-07-24 01:43] LABS: Urine Blood Negative (Negative); Urine Glucose Negative (Negative); Urine Protein Negative (Negative)
[2021-07-24 02:36] VITALS: BP 121/76; TEMP 97.3; O2SAT 92
--- NOTE | 2021-07-24 14:25 | RAD REPORT ---
EXAM DESCRIPTION: US - UPPER EXTREMITY VENOUS UNILATE - 07/23/2021 10:09 pm CLINICAL HISTORY: 60 years Female, right upper x-ray pain TECHNIQUE: Johnson scale ultrasound, color Doppler and spectral Doppler were utilized to evaluate the r ight upper extremity deep venous systems. COMPARISON: None. FINDINGS: There is normal color filling, compression and respiratory variation in the visualized rig ht internal jugular vein. There is normal color filling and respiratory variation in the right subcla vian vein. The right axillary and brachial vein has normal color filling and compression. Radial an d ulnar veins are patent. Patent basilic and cephalic veins with normal compression and normal directional flow. Note that t he basilic and cephalic veins are part of the superficial venous system of the upper extremity. IMPRESSION: 1. No evidence for deep venous thrombosis of right upper extremity. Electronically signed by: Jas Kamara MD 07/23/2021 11:04 PM CDT Due to temporary technical issues with the PACS/Fluency reporting system, reports are being signed by the in house radiologist without review as a courtesy to ensure prompt reporting. The interpreting r adiologist is fully responsible for the content of the report.
--- NOTE | 2021-07-24 21:10 | RAD REPORT ---
EXAM DESCRIPTION: RAD - Chest Single View - 07/23/2021 10:30 pm CLINICAL HISTORY: 60 years Female, COUGH TECHNIQUE: 1 view (Single frontal view of the chest) COMPARISON: None. FINDINGS: LINES AND TUBES: None. CARDIOVASCULAR STRUCTURES: ormal heart size. Mild to moderate diffuse increased interstitial opacitie s. LUNGS: No confluent areas of acute consolidation. PLEURA: No layering pleural effusions. No pneumothorax. BONES: Anterior cervical fusion. No acute osseous abnormality of the thorax. IMPRESSION: 1. Mild to moderate diffuse increased interstitial opacities may represent chronic int erstitial changes plus or minus superimposed bronchitis and less likely edema. Electronically signed by: Jas Kamara MD 07/23/2021 11:08 PM CDT Due to temporary technical issues with the PACS/Fluency reporting system, reports are being signed by the in house radiologists without review as a courtesy to insure prompt reporting. The interpreting radiologist is fully responsible for the content of the report.
--- NOTE | 2021-07-24 21:43 | RAD REPORT ---
EXAM DESCRIPTION: CT - C Spine Wo Con - 07/24/2021 5:18 am CLINICAL HISTORY: 60 years Female, Cervical radiculopathy, no red flags TECHNIQUE: Helical CT axial images of the cervical spine without IV contrast. Multiplanar reconstruc tion. This exam was performed according to our departmental dose-optimization program, which includ es automated exposure control, adjustment of the mA and/or kV according to patient size and/or use of iterative reconstruction technique. COMPARISON: None. FINDINGS: VERTEBRA: Cervical spine is in normal anatomic alignment. Status post anterior fusion C5-C 6 with plate and screw fixation and interbody dowel. No acute fracture or subluxation. Cervical verte bra are normal in height. Craniocervical junction is intact. Mild to moderate posterior discogenic osteophytosis C5-C6. No significant anterior marginal osteophytosis. Mild degenerative changes atlant odental interval. DISCS: Intervertebral discs are well-preserved. LEVELS: C2-3: No significant canal stenosis or neural foraminal stenosis. C3-4: No significant canal stenosis or neural foraminal stenosis. C4-5: Mild canal stenosis. No foraminal stenosis. C5-6: Severe canal stenosis and mild bilateral foraminal stenosis. C6-7: No significant canal stenosis or neural foraminal stenosis. C7-T1: No significant canal stenosis or neural foraminal stenosis. SOFT TISSUES: Paravertebral soft tissues are unremarkable. IMPRESSION: 1. Status post anterior cervical fusion C5-C6. 2. Severe canal stenosis and mild bilateral foraminal stenosis C5-C6. 3. Mild canal stenosis C4-C5. 4. Consider nonemergent follow-up MRI cervical spine versus CT myelography for better assessment. Electronically signed by: Jas Kamara MD 07/23/2021 11:07 PM CDT Due to temporary technical issues with the PACS/Fluency reporting system, reports are being signed by the in house radiologists without review as a courtesy to insure prompt reporting. The interpreting radiologist is fully responsible for the content of the report.
== END 2021-07-24 01:12 | disposition home or self-care (01) ==
LOC: ER 20:43
DX: M50.13 Cervical disc disorder with radiculopathy, cervicothoracic region (principal); G89.4 Chronic pain syndrome; J84.10 Pulmonary fibrosis, unspecified; J44.9 Chronic obstructive pulmonary disease, unspecified; E11.9 Type 2 diabetes mellitus without complications; F17.210 Nicotine dependence, cigarettes, uncomplicated; Z88.0 Allergy status to penicillin; Z88.1 Allergy status to other antibiotic agents; Z88.5 Allergy status to narcotic agent; Z88.8 Allergy status to other drugs, medicaments and biological substances; Z91.048 Other nonmedicinal substance allergy status
CPT/HCPCS: 93005 ×2; 85025; 80048; 36415; 83735; 85610; 80076; 81003; 84484; 83880; 72125; 71045; 93971; J1100; J1170; J7030; J2405; 96374; 96375; 99283